=== PATIENT | male | born 1995 | race Caucasian/White ===

== ENCOUNTER 2016-07-10 21:29 | Emergency (ER) | payer OTHER, BC ==
[~2016-07-10] VITALS: Ht 175.3 cm; Wt 81.6 kg
--- NOTE | 2016-07-10 22:27 | RAD ---
PROCEDURE Cervical spine CT without contrast. HISTORY Left arm numbness. TECHNIQUE Computed tomographic images of the cervical spine were obtained without contrast. One or more of the following individualized dose reduction techniques were utilized for this examination: 1. Automated exposure control; 2. Adjustment of the mA and/or kV according to patient size; 3. Use of iterative reconstruction technique. COMPARISON None. FINDINGS There is no significant listhesis. The vertebral bodies are normal in height and the disc spaces are preserved. There is no acute fracture. The posterior fossa is unremarkable. The mastoid air cells are clear. The airway is midline and widely patent. There is partial visualization of cardiac pacemaker leads. No disc protrusion or significant foraminal or central canal stenosis is seen. IMPRESSION No acute osseous finding or significant foraminal or central canal stenosis. Electronically signed by: Shawna Thakur (Jul 10, 2016 22:26:27)
[2016-07-10] MEDS ORDERED: HYDR-2666 PO (22:44)
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
[2016-07-10 22:51] VITALS: BP 134/63
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
--- NOTE | 2016-07-11 11:32 | EKG ---
[facility] [address] [place] [address] Test Date: 2016-07-10 Test Time: 22:00:49 Pat Name: GRANT LEO Department: Room: Gender: M Office Runner: : 1995 Requested By: STEVE TOMAS Order Number: [id number] Reading MD: Measurements Intervals [place] Rate: 60 P: 61 ME: 180 QRS: 75 QRSD: 94 T: 23 QT: 368 QTc: 372 Interpretive Statements SINUS RHYTHM QRS(T) CONTOUR ABNORMALITY CONSIDER ANTEROSEPTAL MYOCARDIAL DAMAGE POSSIBLY ABNORMAL ECG RI6.01 No previous ECG available for comparison
== END 2016-07-10 23:00 | disposition home or self-care (01) ==
LOC: ER 21:29
DX: M79.602 Pain in left arm (principal); R20.2 Paresthesia of skin; J45.909 Unspecified asthma, uncomplicated; Z88.0 Allergy status to penicillin; Z88.8 Allergy status to other drugs, medicaments and biological substances
CPT/HCPCS: 71020; 72125; 93005; 99284-25